=== PATIENT | male | born 2000 | race Caucasian/White ===

== ENCOUNTER 2022-05-24 23:50 | Emergency (ER) | payer SELFPAY ==
[~2022-05-24] VITALS: Ht 182.9 cm; Wt 86.2 kg
[2022-05-25 00:04] VITALS: BP_SYST 129
--- NOTE | 2022-05-25 00:05 | NUR ---
Patient triaged and placed in waiting room. VSS and patient appears in no acute distress at this time. Accompanied by self, awaiting available bed, and MD notified of need for MSE.
--- NOTE | 2022-05-25 01:15 | NUR ---
PT NOT FOUND IN WAITING ROOM WHEN CALLED FOR MSE.
--- NOTE | 2022-05-25 01:30 | NUR ---
PT NOT FOUND IN WAITING ROOM.
== END 2022-05-25 01:45 | disposition left against medical advice (07) ==
LOC: SED 23:50
DX: S60.947A Unspecified superficial injury of left little finger, initial encounter (principal); Z79.899 Other long term (current) drug therapy; Z53.21 Procedure and treatment not carried out due to patient leaving prior to being seen by health care provider; W23.0XXA Caught, crushed, jammed, or pinched between moving objects, initial encounter; Y93.89 Activity, other specified; Y92.89 Other specified places as the place of occurrence of the external cause; Y99.8 Other external cause status
CPT/HCPCS: 73140-TC